=== PATIENT | male | born 1990 | race Caucasian/White ===

== ENCOUNTER 2019-06-04 19:55 | Emergency (ER) | payer MEDICAID ==
[~2019-06-04] VITALS: Ht 193 cm; Wt 97.7 kg
[2019-06-04 19:59] VITALS: Ht 193 cm; Wt 97.7 kg
[2019-06-04] MEDS ORDERED: ROBAXIN500 MG PO (20:30)
[2019-06-04] MEDS ORDERED: TORADOL10 MG PO (20:30)
[2019-06-04 20:50] VITALS: BP 125/86
== END 2019-06-04 20:50 | disposition home or self-care (01) ==
LOC: D.ER 19:55
DX: S46.911A Strain of unspecified muscle, fascia and tendon at shoulder and upper arm level, right arm, initial encounter (principal); X50.0XXA Overexertion from strenuous movement or load, initial encounter; F17.210 Nicotine dependence, cigarettes, uncomplicated

== ENCOUNTER 2019-06-12 16:34 | Emergency (ER) | payer MEDICAID ==
[~2019-06-12] VITALS: Ht 193 cm; Wt 94.5 kg
[~2019-06-12 16:34] MED LIST: ROBAXIN500 MG PO; TORADOL10 MG PO
[2019-06-12 17:02] VITALS: Ht 193 cm; Wt 94.5 kg
[2019-06-12] MEDS ORDERED: PREDNISONE20 MG PO (17:23)
[2019-06-12] MEDS ORDERED: BACTRIM 400-801 TAB PO (17:23)
[2019-06-12 17:56] VITALS: BP 127/73
== END 2019-06-12 17:56 | disposition home or self-care (01) ==
LOC: D.ER 16:34
DX: T63.481A Toxic effect of venom of other arthropod, accidental (unintentional), initial encounter (principal); Y93.89 Activity, other specified

== ENCOUNTER 2020-05-06 16:30 | Emergency (ER) | payer OTHER ==
[~2020-05-06 16:30] MED LIST changes: +BACTRIM 400-801 TAB PO; +PREDNISONE20 MG PO
[2020-05-06 16:40] VITALS: BP 136/83; Ht 193 cm
[2020-05-06] MEDS ORDERED: CLEOCIN HCL300 MG PO (17:19)
[2020-05-06] MEDS ORDERED: KEFLEX500 MG PO (17:19)
== END 2020-05-06 17:31 | disposition home or self-care (01) ==
LOC: D.ER 16:30
DX: L03.115 Cellulitis of right lower limb (principal)